=== PATIENT | female | born 1980 | race Caucasian/White ===

== ENCOUNTER 2020-05-25 20:56 | Emergency (ER) | payer BC ==
--- NOTE | 2020-05-25 21:35 | EDM.PDOC ---
ED HPI GENERAL MEDICAL PROBLEM - General Chief Complaint: Upper Extremity Injury/Pain Stated Complaint: LT HAND INJURY Time Seen by Provider: 05/25/20 21:06 Source of Information: Reports: Patient, Family () History Limitations: Reports: No Limitations - History of Present Illness INITIAL COMMENTS - FREE TEXT/NARRATIVE: Mrs. Paige is a very pleasant 39-year-old woman who now presents to the ED with a left hand injury. She states that she tripped and fell while carrying a grill around 21:00 this evening. She presents with ecchymosis and swelling to the dorsal aspect of her left third and fourth MCP joints, and some dried blood to the volar aspect of her hand due to a small scratch on the volar aspect. She denies any other injury. Did not take any [id number] or home remedies prior to coming to the ED. Here in the ED, the patient is found to be hemodynamically stable, afebrile, saturating 98% on room air. Prior to 21:00, the patient denies having a recent fever, chills, sore throat, ear pain, nasal or sinus congestion, cough, dyspnea, chest pain, palpitations, nausea, vomiting, constipation, diarrhea, abdominal pain, urinary symptoms, recent weight gain or weight loss, recent bloody bowel movements or black bowel movements, recent joint aches, headaches, or rashes. The patient does not recall when her last tetanus vaccination was. She agreed to receive one here in the ED tonight. The patient's PCP/Financial Consultant is Dr. Eva Palm, in [place]. She already received an influenza vaccine this season. Left Hand Pain Score (Numeric/FACES): 3 - Related Data Allergies Allergy/AdvReac Type Severity Reaction Status Date / Time No Known Allergies Allergy Verified 01/03/14 11:08 Past Medical History [employer] History: Reports: Other (See Below) (Ovarian cysts) Psychiatric History: Reports: Anxiety, Depression - Past Surgical History HEENT Surgical History: Reports: Oral Surgery (dental extractions) GI Surgical History: Reports: Appendectomy Female Surgical History: Reports: Oophorectomy (right) Social & Family History - Tobacco Use Tobacco Use Status *Q: Never Tobacco User Second Hand Smoke Exposure: No - Caffeine Use Caffeine Use: Reports: Coffee - Alcohol Use Alcohol Use History: Yes Alcohol Use Frequency: Rarely - Recreational Drug Use Recreational Drug Use: No - Living Situation & Occupation Living situation: Reports: , with Spouse, with Family (2 kids) 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 ED EXAM, GENERAL - Physical Exam Exam: See Below Exam Limited By: No Limitations General Appearance: Alert, WD/WN, No Apparent Distress Extremities: Other (There is significant swelling and ecchymosis over the dorsal aspect of the left third MCP, with less significant swelling and ecchymosis over the left fourth MCP joint. No swelling or ecchymosis over the other joints. The patient denies pain to palpation of any of the proximal phalanxes, and she also denies pain to PROM of any of the MCP joints, including the third and fourth. Further, she denies pain to compression of the mid metacarpal bones, including the third and fourth metacarpal bones. Over the volar aspect of the patient's fourth MCP joint, the patient has a small blood blister and associated partial-thickness laceration, with surrounding dried blood. The wound is not currently bleeding. The patient denies tingling or numbness to any of her fingers, and is able to move them; neurovascular status of the left hand appears to be intact.) Course - Vital Signs Last Recorded V/S: Last Vital Signs Temp 36.4 C 05/25/20 21:04 Pulse 82 05/25/20 21:04 Resp 16 05/25/20 21:04 BP 132/83 05/25/20 21:04 Pulse Ox 98 05/25/20 21:04 - Orders/Labs/Meds Orders: Active Orders 24 hr Category Date Time Status Vaccines to be Administered [RC] PER UNIT ROUTINE Care 05/25/20 21:41 Active Hand Comp Min 3V Lt [CR] Stat Exams 05/25/20 21:28 Taken Meds: Medications Discontinued Medications Generic Name Dose Route Start Last Admin Trade Name Freq PRN Reason Stop Dose Admin Diphtheria/Tetanus/Acell Pertussis 0.5 ml 05/25/20 21:41 05/25/20 21:55 Boostrix IM 05/25/20 21:42 0.5 ml .ONCE ONE Administration - Re-Assessments/Exams Free Text/Narrative Re-Assessment/Exam: 05/25/20 21:30 As above, the patient tripped and fell tonight, injuring her left hand. She has significant swelling with ecchymosis over the dorsal aspect of her left third MCP joint, extending to the dorsal aspect of the left fourth MCP joint, although she has no tenderness to any of her proximal phalanxes and pain is not induced with ROM at any of the MCP joints. Further, pain is not induced with compression of the mid metacarpal bones, therefore an underlying fracture is unlikely, however, I have ordered x-rays of the hand to be certain. In the meantime, I provided the patient with an ice pack, but she declined an offer for pain medication. 05/25/20 23:03 3-view radiographs of the left hand appear to be grossly normal, with no fractures or dislocations identified. Formal read per the Radiologist pending. 05/25/20 23:04 X-ray results discussed with the patient and her . I am recommending that she ice her hand over the next 2 to 3 days to help minimize swelling, and I advised that ibuprofen will probably work better for pain control than acetaminophen. The patient will be given a tetanus vaccination prior to discharge. Departure - Departure Time of Disposition: 23:05 Disposition: Home, Self-Care 01 Condition: Good Clinical Impression: Contusion of left hand - Discharge Information *PRESCRIPTION DRUG MONITORING PROGRAM REVIEWED*: Not Applicable *COPY OF PRESCRIPTION DRUG MONITORING REPORT IN PATIENT SATINDER: Not Applicable Referrals: Eva Palm MD [Primary Care Provider] - Forms: ED Department Discharge Additional Instructions: You were seen in the emergency room after tripping and falling, injuring your left hand. Work-up in the ER included x-rays of your left hand, which returned normal. No broken bones, chips, or dislocations were found. Based on your history, physical exam, and ER x-rays, you appear to have contused (bruised) your left hand. We recommend that you apply an ice pack to the back of your left hand for 10 to 15 minutes, 5 times a day, for 2 to 3 days, to help minimize swelling. We recommend you take [id number] ibuprofen as needed for discomfort. You will probably find that ibuprofen works better than acetaminophen. If any other problems, please do not hesitate to return to the ER. You were given a tetanus vaccination during your ER visit. Sepsis Event Note (ED) - Evaluation Sepsis Screening Result: No Definite Risk - Focused Exam Vital Signs: Vital Signs Temp Pulse Resp BP Pulse Ox 05/25/20 21:04 36.4 C 82 16 132/83 98 - My Orders Last 24 Hours: My Active Orders 05/25/20 21:28 Hand Comp Min 3V Lt [CR] Stat 05/25/20 21:41 Vaccines to be Administered [RC] PER UNIT ROUTINE - Assessment/Plan Last 24 Hours: My Active Orders 05/25/20 21:28 Hand Comp Min 3V Lt [CR] Stat 05/25/20 21:41 Vaccines to be Administered [RC] PER UNIT ROUTINE
[2020-05-25] MEDS ORDERED: Diphtheria,Pertussis(Acell),Tetanus Vaccine 0.5 ML Syringe IM ONE (21:41)
--- NOTE | 2020-05-26 09:39 | CR ---
Left hand: 3 views of the left hand were obtained. Comparison: No previous study. Soft tissue swelling is noted. No fracture, dislocation or other bony abnormality is appreciated. Impression: 1. Soft tissue swelling. 2. No acute bony abnormality is appreciated on 3 view left hand exam. Diagnostic code #2
== END 2020-05-25 23:11 | disposition home or self-care (01) ==
LOC: JD.ED 20:56
DX: S60.222A Contusion of left hand, initial encounter (principal); Z23 Encounter for immunization; W01.0XXA Fall on same level from slipping, tripping and stumbling without subsequent striking against object, initial encounter
CPT/HCPCS: 73130-26-LT; 73130-LT; 90471; 90715; 99282; 99283-25